=== PATIENT | female | born 1990 | race Caucasian/White ===

== ENCOUNTER 2016-08-10 02:41 | Emergency (ER) | payer BC ==
--- NOTE | ~2016-08-10 | CT4 ---
[facility] A Service of [facility] RADIOLOGY TEXT RESULTS PATIENT: CASSANDRA OLEARY LOCATION: SED : [birth year] UNIT #: [id number] AGE: [address]: Fior Ross MD SEX: F ORDER DR: [id number] [address] [address] [id number] E MR#: [id number] Acc #: [id number] NAME: CASSANDRA OLEARY. : 1990 SEX: F STUDY DATE/TIME: 08/10/2016 3:11 UNIT: SED ROOM: STUDY DESCRIPTION: CT Abd and Pelv Wo Cont Attending Physician: Fior Ross M.D. Ordering Physician: Physician Non-Staff Primary Care Physician: Brianna Goncalves M.D. MEDICAL IMAGING REPORT This report is preliminary unless electronic signature is present. EXAM CT abdomen and pelvis, noncontrast, kidney stone protocol, 08/10/2016 HISTORY 26-year-old female in the ED complaining of 2-day history of left flank pain and nausea. Past history of kidney stones. TECHNIQUE CT examination of the abdomen and pelvis without oral or IV contrast using kidney stone protocol. This CT exam was performed with one or more of the following radiation dose reduction techniques: automatic exposure control, adjustment of mA and/or kV according to patient size, and iterative reconstruction. FINDINGS Abdomen: There is a 2 mm obstructing stone in the left upper ureter at the UPJ causing mild left hydronephrosis. There is a 6 mm nonobstructing left lower pole renal stone and a 3-mm nonobstructing right lower pole renal stone. Kidneys, ureters and bladder are otherwise negative. Mild diffuse hepatic steatosis. Liver, pancreas and spleen are otherwise negative. No bile duct dilatation. Small bowel and colon are normal in caliber and appearance, as imaged. The appendix is not clearly seen but there is no evidence of acute appendicitis. Pelvis: Uterus, ovaries, empty urinary bladder and rectum are within normal limits. IMPRESSION 1. 2 mm obstructing stone in the left upper ureter at the UPJ causing mild left hydronephrosis. 2. Single nonobstructing lower pole calculus within each kidney measuring 3 mm on the right and 6 mm on the left. [facility] A Service of [facility] RADIOLOGY TEXT RESULTS PATIENT: CASSANDRA OLEARY [place] [facility] [place] [birth year] UNIT #: [id number] AGE: [address]: Fior Ross MD SEX: F ORDER DR: 3. The remainder of the examination is negative. Dictated by... Miguel Echols M.D. THIS IS AN ELECTRONICALLY VERIFIED REPORT Miguel Echols M.D. at 08/10/2016 10:06 PM Charly TD: 08/10/2016 13:21 JOB #: [id number] MEDICAL IMAGING REPORT Page 1 of 1
[~2016-08-10 02:41] MED LIST: CIPRO PO; MINOCIN PO; NO MEDICATIONS; ORTHO TRI-7 DAYS X PO; PHENERGAN PO; TYLOX 5/500 CAP1 CAP PO
[2016-08-10 02:45] LABS: URINE SOURCE CLEAN CATCH
[2016-08-10 02:47] LABS: URINE APPEARANCE SL CLOUDY; URINE BLOOD 3+ (NEG); URINE COLOR YELLOW; URINE GLUCOSE NEG (NORM); URINE KETONE TRACE (NEG); URINE LEUKOCYTE ESTERASE NEG (NEG); URINE NITRATE NEG (NEG); URINE PROTEIN 2+ (NEG); URINE SPECIFIC GRAVITY >=1.030 (1.003-1.035)
[2016-08-10 02:48] LABS: MICRO INDICATED? YES; URINE BILIRUBIN NEG (NEG)
[2016-08-10 02:49] LABS: URINE BACTERIA 1+ (NEG); URINE MUCUS PRESENT; URINE RBC 50-100 /[HPF] (0-2); URINE SQUAMOUS EPITHELIAL CELL FEW /[HPF]; URINE WBC 0-2 /[HPF] (0-5)
[2016-08-10 03:08] LABS: BASOPHIL# 0.1 X10e3 (0-0.3); BASOPHIL% 0.7 % (0-2.5); EOSINOPHIL# 0.1 X10e3 (0-0.7); EOSINOPHIL% 0.6 % (0.0-7.0); HEMATOCRIT 40.8 % (35.0-45.0); HEMOGLOBIN 12.8 gm/dL (12.0-16.0); LYMPHOCYTE# 2.2 X10e3 (1.0-3.5); LYMPHOCYTE% 18.8 % (17.0-45.0); MEAN CELL VOLUME 82.4 FL (83-96); MEAN CORPUSCULAR HEMOGLOBIN 25.9 PG (28-34); MEAN CORPUSCULAR HGB CONC 31.4 g/dL (30-36); MEAN PLATELET VOLUME 8.3 FL (6.5-11.5); MONOCYTE# 0.7 X10e3 (0-1.0); MONOCYTE% 5.7 % (3.0-12.0); NEUTROPHIL# 8.5 X10e3 (1.5-7.1); NEUTROPHIL% 74.2 % (40-75); PLATELET COUNT 292 X10e3 (140-420); RED BLOOD COUNT 4.96 X10e (3.90-5.30); RED CELL DISTRIBUTION WIDTH 13.5 % (11.0-15.5); WHITE BLOOD COUNT 11.5 X10e3 (4.0-10.5)
[2016-08-10 03:10] LABS: DIFF IND NO
[2016-08-10 03:23] LABS: BLOOD UREA NITROGEN 14 mg/dL (9-23); CALCIUM SERUM 9.4 mg/dL (8.4-10.2); CARBON DIOXIDE 26 mmol/L (22-31); CHLORIDE 102 mmol/L (100-111); CREATININE SERUM 0.7 mg/dL (0.6-1.4); GLOM FILT RATE Estimated ABOVE60 mL/min (>60); GLUCOSE FASTING 110 mg/dL (70-110); POTASSIUM 3.8 mmol/L (3.5-5.1); SODIUM 137 mmol/L (135-145)
== END 2016-08-10 04:42 | disposition home or self-care (01) ==
LOC: SED 02:41
PROVIDERS: Emergency Medicine
DX: N13.2 Hydronephrosis with renal and ureteral calculous obstruction (principal)
CPT/HCPCS: 74176; 80048; 81003; 84703; 85025; 96361; 96372; 96374; 96375; 99284; J1885; J2270; J2405; J2550